=== PATIENT | female | born 1955 | race Caucasian/White ===

== ENCOUNTER → 2018-09-17 14:59 | Outpatient (CLI) | payer OTHER, MEDICAID, SELFPAY ==
--- NOTE | 2018-09-17 | DI.ECHO.S_ITS ---
[facility] +---------+ : : [address] : : : : [phone] : : : : Phone: [phone]+ Echocardiogram Report + + :Name: PURNIMA GUEVARA Study Date: 09/17/2018 Height: 66 in : :[facility] Weight: 257 lb : : Gender: Female BSA: 2.2 m2 : :: 1955 Age: 63 yrs BP: 130/84 mmHg: :Reason For Study: MR : : Performed By: Keyona Dorman : :Referring: DELMAR KRAUS : + + Interpretation Summary 1) Severely enlarged left ventricle (LVEDD 6.4cm) with mildly reduced function (EF 45-50%). 2) Normal right ventricular size and function. 3) The left atrium is moderately dilated. 4) Moderate mitral regurgitation present. 5) Pulmonary artery pressures cannot be estimated because of the lack of a measurable TR jet velocity. 6) No prior echo available for comparison. Procedure: A two-dimensional transthoracic echocardiogram with color flow and Doppler was performed. The study quality was technically adequate. There is no prior echocardiogram noted for this patient. The patient was in atrial fibrillation with heart rates between 78-104 bpm during the exam. Left Ventricle: The left ventricle is severely dilated. Left ventricular wall thickness is normal. The ejection fraction is estimated to be 45-50%. Diastolic function could not be accurately assessed due to atrial fibrillation. Right Ventricle: The right ventricle is normal in size and function. Atria: The left atrium is moderately dilated. Right atrial size is normal. There is no Doppler evidence for an interatrial shunt. Mitral Valve: The mitral valve is grossly normal. There is moderate mitral regurgitation. Aortic Valve: The aortic valve opens well. There is mild aortic valve sclerosis. There is no aortic valve stenosis. There is trace aortic regurgitation. Tricuspid Valve: The tricuspid valve is normal in structure and function. There is a trace or physiologic amount of tricuspid regurgitation. Pulmonary artery pressures cannot be estimated because of the lack of a measurable TR jet velocity. Pulmonic Valve: The pulmonic valve is not well visualized. Great Vessels: The aortic root is normal size. The ascending aorta is normal in size. The aortic arch is normal in size. The pulmonary artery is normal size. The IVC is of normal diameter and collapses greater than 50% with a sniff. This suggests a low right atrial pressure of 3 mm Hg. Pericardium/ Pleura There is no pericardial effusion. There is no pleural effusion. MMode/2D Measurements & Calculations LVIDd: 6.4 cm LVOT diam: 2.3 cm LVIDs: 5.1 cm Ao root diam: 3.5 cm FS: 20.8 % asc Aorta Diam: 3.2 cm IVSd: 0.96 cm Ao Arch Diam (distal): 2.7 cm LVPWd: 1.1 cm LV nieto. diameter/BSA (cm/m^2): 2.9 LV sys. diameter/BSA (cm/m^2): 2.3 LA A2 area: 26.6 cm2 RA long axis: 5.4 cm LA A4 area: 26.2 cm2 RA area: 18.8 cm2 LA length (vol): 5.8 cm RA vol: 56.2 ml LA vol: 102.2 ml RA : 25.3 ml/m2 LA vol index: 45.9 ml/m2 IVC diam: 1.9 cm RVD1 (basal): 3.6 cm TAPSE: 2.7 cm Doppler Measurements & Calculations Ao V2 max: 141.6 cm/sec LVOT Max Corby: 82.8 cm/sec Ao V2 mean: 110.1 cm/sec LV V1 max P.7 mmHg Ao max P.0 mmHg LV V1 VTI: 17.3 cm Ao mean P.2 mmHg NEHEMIAH(I,D): 2.7 cm2 Ao V2 VTI: 26.3 cm NEHEMIAH(V,D): 2.4 cm2 sev ratio: 0.66 NEHEMIAH indexed to BSA (cm^2/m^2): 1.2 MV E max corby: 112.3 cm/sec SV(LVOT): 70.4 ml MV dec time: 0.19 sec Reading Physician:01:[id number] PM
== END ==
PROVIDERS: PCP Family Medicine; Visit Provider Internal Medicine Cardiovascular Disease
DX: I08.0 Rheumatic disorders of both mitral and aortic valves (principal)
CPT/HCPCS: 93306

== ENCOUNTER → 2018-11-26 07:33 | Outpatient (CLI) | payer OTHER, MEDICAID, SELFPAY ==
--- NOTE | 2018-11-26 08:49 | PM.TREADMILL ---
Cardiac Stress Test Report Referral & Results Date Patient Seen: 11/26/18 Time Patient Seen: 08:30 Requesting provider: Andrew Kraus Indication: Atrial fibrillation Rest ECG: Atrial fibrillation Procedure Note: After both written and verbal informed consent the patient had an IV started by the diagnostic imaging RN and then was hooked up to the treadmill monitoring system. Overwhelming artifact prevented any useful information from being observed from the EKG. Patient experienced marked JONAS and fatigue after a minute on the treadmill. Converted to Lexiscan. The patient was placed on the treadmill at 1 mile an hour with no elevation and was then injected with the Arlet scan material. The Cardiolite was then immediately administered. The patient spent an additional one minute on the treadmill before complaining of fatigue and nausea. She was returned to the [facility] in the supine position where she recovered quickly. The patient had a normal response to all infused materials. Impression: Suboptimal Arlet protocol. Will await perfusion imaging. Please note: Actual ECG tracings can be found in the PACS system.
--- NOTE | 2018-11-30 05:03 | DI.NM.S_ITS ---
DATE OF SERVICE: 11/26/2018 PROCEDURE: Pharmacologic perfusion study. INDICATIONS: Persisted atrial fibrillation, chronic heart failure. RADIOPHARMACEUTICAL: 24.4 mCi of technetium-99m Myoview IV was injected at stress and 26.1 mCi of technetium-99m Myoview IV was injected at rest. CARDIAC STRESS: Initially, the patient attempted exercise stress test, however, could not walk more than 2 minutes and 40 seconds on treadmill. The patient had marked dyspnea and fatigue; hence, it was discontinued. The patient was given IV Lexiscan, as per protocol. She felt nausea and shortness of breath. Baseline EKG revealed atrial fibrillation with controlled ventricular rate. During stress Lexiscan, there were no new convincing ischemic changes. There were baseline ST-T changes. No significant new arrhythmias seen other than atrial fibrillation. RAW DATA: There was increased subdiaphragmatic activity. Breast shadow was seen, as well. The patient's weight is about 250 pounds. GATED STUDY: Resting LV ejection fraction 42% and stress LV ejection fraction was 54% with resting global hypokinesis. Resting end-diastolic volume 186 mL, suggestive of dilated left ventricle. TID ratio 0.92, which is within normal limits. Lung/heart ratio 0.27, which is within normal limits. MYOCARDIAL PERFUSION: Stress supine and resting supine images were compared to each other. During prone images, significant motion artifact seen; hence, it was not used. During stress supine and resting supine, there is a predominantly fixed small-sized mildly decreased perfusion of mid-anterior wall and apex, predominantly mid-portion. No obvious convincing reversible ischemia. CONCLUSION: This is an abnormal myocardial perfusion study with small-sized predominantly fixed perfusion defect of mid-anterior wall and mid-apical wall without any obvious reversible ischemia. The patient has a dilated left ventricle and resting LV ejection fraction of 42%, however, stress LV ejection fraction is 54%. No transient ischemic dilatation. There is increased subdiaphragmatic activity as well as breast shadow seen. Most likely, based on perfusion study, the patient appears to be non-ischemic dilated cardiomyopathy; however, underlying coronary artery disease cannot be ruled out entirely. Prone images had significant motion artifact; hence, it was not counted. Clinical correlation is recommended. Marissa Solo - ACE/cortes/kerry doc#: [id number]/job#: [id number] dd: 11/29/2018 17:22:00 dt: 11/30/2018 04:41:00 DICTATING MD/COPIES TO: Courtney Sanchez MD COPIES MNE: FRANK
== END ==
PROVIDERS: PCP Family Medicine; Visit Provider Internal Medicine Cardiovascular Disease
DX: I48.1 Persistent atrial fibrillation (principal); I50.9 Heart failure, unspecified; R94.39 Abnormal result of other cardiovascular function study
CPT/HCPCS: 78452; 93016; 93017; 93018; A9502; J2785

== ENCOUNTER → 2019-07-05 10:44 | Outpatient (CLI) | payer OTHER, MEDICAID, SELFPAY | PROVIDERS: PCP Nurse Practitioner; Visit Provider Nurse Practitioner | DX: J03.90 Acute tonsillitis, unspecified (principal); R05 Cough | CPT/HCPCS: 87070 ==

== ENCOUNTER → 2019-07-28 15:41 | Outpatient (CLI) | payer OTHER, MEDICAID, SELFPAY ==
--- NOTE | 2019-07-28 15:42 | DI.CT.S_ITS ---
PROCEDURE: CT KIDNEY URETER BLADDER (KUB) INDICATIONS: left flank pain, evaluate kidney stones TECHNIQUE: Noncontrast 5 mm thick sections acquired from the diaphragms to the symphysis. 5 mm thick coronal and sagittal reformats were then performed. For radiation dose reduction, the following was used: automated exposure control, adjustment of mA and/or kV according to patient size. COMPARISON: [facility], CT, CT KUB, 07/26/2018, 19:47. FINDINGS: Image quality: Excellent. Lung bases: Lung bases are clear. Tiny pulmonary nodule right lower lobe, (3/8). Heart size is normal. Urinary system: Both kidneys are normal in size. No kidney stones. No hydronephrosis or perinephric fat stranding. Both ureters appear non-dilated throughout their expected courses. Bladder is decompressed; no calcified bladder stones. Other solid organs: Liver is normal in size. Gallbladder is nondistended. There are multiple calcified gallstones. Pancreas is normal in contours. Spleen is normal in size. Left adrenal nodule measuring 1.3 cm, and 21 Hounsfield units on this noncontrast examination (07/10), previously 1.2 cm on 07/26/2018. Peritoneum and bowel: Unenhanced bowel loops demonstrate normal wall thickness and caliber. Diverticulosis. Retrocecal appendix is normal in caliber. No free fluid or air. Nodes and vessels: No retroperitoneal or mesenteric adenopathy by size criteria. Aorta and inferior vena cava are normal in caliber. Abdominal wall: No ventral hernias. Pelvis: No free pelvic fluid. No inguinal hernias or adenopathy. Fibroid uterus. Bones: No suspicious bony lesions. No vertebral body compression fractures. IMPRESSION: 1. No kidney stones. No hydronephrosis. 2. No bowel obstruction. No acute inflammatory process demonstrated. No free fluid. 3. Stable indeterminate left adrenal nodule since July 2018. 4. Cholelithiasis. Dictated by: Zhao Alvarado M.D. on 07/28/2019 at 16:38 Approved by: Zhao Alvarado M.D. on 07/28/2019 at 16:47
== END ==
PROVIDERS: PCP Nurse Practitioner; Referring Provider Nurse Practitioner; Visit Provider Nurse Practitioner
DX: R10.9 Unspecified abdominal pain (principal); K80.20 Calculus of gallbladder without cholecystitis without obstruction; E27.9 Disorder of adrenal gland, unspecified; Z87.442 Personal history of urinary calculi
CPT/HCPCS: 74176

== ENCOUNTER → 2019-10-24 15:55 | Outpatient (CLI) | payer OTHER, MEDICAID, SELFPAY ==
--- NOTE | 2019-10-24 15:59 | DI.CT.S_ITS ---
PROCEDURE: CT HEAD/BRAIN WO CON INDICATIONS: head injury/hematoma s/p fall on blood thinner TECHNIQUE: Noncontrast 4.5 mm thick angled axial sections acquired from the foramen magnum to the vertex, with coronal and sagittal reformats. For radiation dose reduction, the following was used: automated exposure control, adjustment of mA and/or kV according to patient size. COMPARISON: None. FINDINGS: Image quality: Excellent. CSF spaces: Basal cisterns are patent. No extra-axial fluid collections. The ventricles are symmetric in size and shape. Brain: No intracranial bleeds or masses. There is mild cerebral volume loss for age, with resultant ventricular and sulcal prominence. There are mild periventricular and deep white matter chronic small vessel ischemic changes. There is intracranial internal carotid artery atherosclerosis. Skull and face: Calvarium and visualized facial bones appear intact, without suspicious lesions. Large left parietal scalp hematoma. Sinuses: Visualized sinuses and mastoids are clear. IMPRESSION: 1. No acute intracranial disease process. 2. No intracranial hemorrhage. 3. No fracture. Dictated by: Katty Lo MD, PhD on 10/24/2019 at 16:16 Approved by: Katty Lo MD, PhD on 10/24/2019 at 16:21
== END ==
PROVIDERS: PCP Nurse Practitioner; Referring Provider Nurse Practitioner; Visit Provider Nurse Practitioner
DX: S09.90XA Unspecified injury of head, initial encounter (principal); S00.93XA Contusion of unspecified part of head, initial encounter; E11.9 Type 2 diabetes mellitus without complications; E03.9 Hypothyroidism, unspecified; E66.01 Morbid (severe) obesity due to excess calories; I48.91 Unspecified atrial fibrillation; I27.20 Pulmonary hypertension, unspecified; I50.9 Heart failure, unspecified; I51.7 Cardiomegaly; G47.33 Obstructive sleep apnea (adult) (pediatric); Z68.41 Body mass index [BMI] 40.0-44.9, adult; Z91.81 History of falling; Z99.89 Dependence on other enabling machines and devices; Z79.01 Long term (current) use of anticoagulants; W19.XXXA Unspecified fall, initial encounter
CPT/HCPCS: 70450

== ENCOUNTER → 2020-03-27 15:44 | Outpatient (CLI) | payer OTHER, MEDICAID, SELFPAY ==
--- NOTE | 2020-03-27 15:47 | DI.RAD.S_ITS ---
PROCEDURE: XR CHEST 2V INDICATIONS: st depression and afib TECHNIQUE: 2 views of the chest were acquired. COMPARISON: None. FINDINGS: Surgical changes and devices: None. Lungs and pleura: Lungs are clear. No pleural effusions or pneumothorax. Mediastinum: Mediastinal contours are normal. Heart size is normal. Bones and chest wall: No suspicious bony abnormalities. Soft tissues appear unremarkable. IMPRESSION: Normal for age, source of current cardiac arrhythmia symptoms is not seen. Dictated by: Santiago Teresa M.D. on 03/27/2020 at 16:25 Approved by: Santiago Teresa M.D. on 03/27/2020 at 16:26
[2020-03-27 17:56] LABS: Alanine Aminotransferase 15 IU/L (<35); Albumin Globulin Ratio 1.1 (1.0-2.8); Alkaline Phosphatase 93 U/L (38-126); Aspartate Aminotransferase 24 IU/L (14-36); BUN Creatinine Ratio 23.6 (6-22); Bilirubin Total 1.2 mg/dL (0.2-1.3); Blood Urea Nitrogen 43 mg/dL (7-17); Calcium 9.6 mg/dL (8.4-10.2); Carbon Dioxide 24 mmol/L (22-32); Chloride 105 mmol/L (98-107); Estimated Glomerular Filt Rate 28.1 mL/min (>60); Globulin 3.6 g/dL (1.7-4.1); Glucose 148 mg/dL (80-110); HEMOLYSIS < 15 (0-50); Magnesium 1.6 mg/dL (1.6-2.3); Sodium 134 mmol/L (137-145); Total Protein 7.6 g/dL (6.3-8.2)
[2020-03-27 17:57] LABS: Creatine Kinase 25 U/L (30-135)
[2020-03-27 18:02] LABS: Add Manual Diff / Slide Review NO; Basophils Absolute Auto 0 /uL (0-100); Basophils Percent Auto 0.6 % (0-2); Eosinophils Absolute Auto 500 /uL (0-450); Eosinophils Percent Auto 5.8 % (2-4); Hematocrit 31.1 % (36-46); Hemoglobin 10.3 g/dL (12.0-16.0); Lymphocytes Absolute Auto 1300 /uL (1100-4500); Lymphocytes Percent Auto 16.5 % (25-40); Mean Corpuscular HGB Conc 33.2 % (30-36); Mean Corpuscular Hemoglobin 32.7 PG (26-34); Mean Corpuscular Volume 98.5 fL (80-100); Monocytes Absolute Auto 700 /uL (0-900); Monocytes Percent Auto 8.9 % (3-14); Neutrophils Absolute Auto 5400 /uL (1500-7000); Neutrophils Percent Auto 68.2 % (50-75); Platelet Count 254 X10^3/uL (150-400); Red Blood Cell Count 3.16 X10^6/uL (4.0-5.2); Red Cell Distribution Width 16.1 % (11.6-14.8)
[2020-03-27 18:07] LABS: Troponin I < 0.012 ng/mL (0.01-0.034)
[2020-03-27 18:12] LABS: Potassium 5.5 mmol/L (3.4-5.1)
== END ==
PROVIDERS: PCP Nurse Practitioner; Referring Provider Nurse Practitioner; Visit Provider Nurse Practitioner
DX: R94.31 Abnormal electrocardiogram [ECG] [EKG] (principal); I48.91 Unspecified atrial fibrillation; I50.9 Heart failure, unspecified; N18.4 Chronic kidney disease, stage 4 (severe); R55 Syncope and collapse; T50.2X5A Adverse effect of carbonic-anhydrase inhibitors, benzothiadiazides and other diuretics, initial encounter
CPT/HCPCS: 36415; 71046; 80053; 82550; 83735; 84484; 85025

== ENCOUNTER → 2020-03-30 13:45 | Outpatient (CLI) | payer OTHER, MEDICAID, SELFPAY ==
[2020-03-30 14:07] LABS: Occult Blood 1 Negative (Negative)
== END ==
PROVIDERS: PCP Nurse Practitioner; Referring Provider Nurse Practitioner; Visit Provider Nurse Practitioner
DX: D64.9 Anemia, unspecified (principal)
CPT/HCPCS: 82270

== ENCOUNTER → 2020-04-05 11:14 | Outpatient (CLI) | payer OTHER, MEDICAID, SELFPAY ==
[2020-04-05 12:50] LABS: Reticulocyte Count, Percent 2.3 % (1.06-2.63)
[2020-04-05 12:52] LABS: Hematocrit 28.6 % (36-46); Hemoglobin 9.5 g/dL (12.0-16.0); Mean Corpuscular HGB Conc 33.4 % (30-36); Mean Corpuscular Volume 98.7 fL (80-100); Platelet Count 258 X10^3/uL (150-400); Red Blood Cell Count 2.89 X10^6/uL (4.0-5.2); Red Cell Distribution Width 15.2 % (11.6-14.8); White Blood Cell Count 10.2 X10^3/uL (4.5-11.0)
[2020-04-05 13:06] LABS: BUN Creatinine Ratio 14.8 (6-22); Blood Urea Nitrogen 18 mg/dL (7-17); Calcium 9.5 mg/dL (8.4-10.2); Carbon Dioxide 26 mmol/L (22-32); Chloride 105 mmol/L (98-107); Estimated Glomerular Filt Rate 44.5 mL/min (>60); Glucose 139 mg/dL (80-110); HEMOLYSIS < 15 (0-50); Potassium 4.7 mmol/L (3.4-5.1); Sodium 136 mmol/L (137-145)
[2020-04-05 13:16] LABS: HEMOLYSIS < 15 (0-50); Iron 66 ug/dL (37-170)
[2020-04-05 13:18] LABS: Neutrophils Absolute Manual 7854 /uL (3000-5900); Total Cells Counted 100
[2020-04-05 13:19] LABS: Anisocytosis 2+; Polychromasia 1+
[2020-04-05 13:29] LABS: Percent Iron Saturation 28 % (15-50); Total Iron Binding Capacity 239 ug/dL (265-497); Transferrin 174 mg/dL (206-381)
[2020-04-05 13:41] LABS: Ferritin 153 ng/mL (11-264)
[2020-04-05 14:11] LABS: Folate > 20.0 ng/mL (2.76-20.0); Vitamin B12 968 pg/mL (239-931)
[2020-04-06 04:05] LABS: Haptoglobin 136 mg/dL (37-355)
== END ==
PROVIDERS: PCP Nurse Practitioner; Referring Provider Nurse Practitioner; Visit Provider Nurse Practitioner
DX: D64.9 Anemia, unspecified (principal); I50.9 Heart failure, unspecified; N18.4 Chronic kidney disease, stage 4 (severe); R55 Syncope and collapse; R94.31 Abnormal electrocardiogram [ECG] [EKG]; T50.2X5A Adverse effect of carbonic-anhydrase inhibitors, benzothiadiazides and other diuretics, initial encounter
CPT/HCPCS: 36415; 80048; 82607; 82728; 82746; 83010; 83540; 83550; 85025; 85045; 86880

== ENCOUNTER → 2020-04-16 11:22 | Outpatient (CLI) | payer OTHER, MEDICAID, SELFPAY ==
[2020-04-16 13:05] LABS: BUN Creatinine Ratio 13.6 (6-22); Blood Urea Nitrogen 15 mg/dL (7-17); Calcium 9.2 mg/dL (8.4-10.2); Carbon Dioxide 28 mmol/L (22-32); Chloride 105 mmol/L (98-107); Estimated Glomerular Filt Rate 50.2 mL/min (>60); Glucose 124 mg/dL (80-110); HEMOLYSIS < 15 (0-50); Magnesium 1.6 mg/dL (1.6-2.3); Potassium 4.8 mmol/L (3.4-5.1); Sodium 136 mmol/L (137-145)
== END ==
PROVIDERS: PCP Nurse Practitioner; Referring Provider Nurse Practitioner; Visit Provider Nurse Practitioner
DX: I50.9 Heart failure, unspecified (principal); N19 Unspecified kidney failure; Z79.899 Other long term (current) drug therapy
CPT/HCPCS: 36415; 80048; 83735

== ENCOUNTER → 2020-10-22 10:08 | Outpatient (CLI) | payer OTHER, MEDICAID, SELFPAY ==
[2020-10-22 11:17] LABS: Hemoglobin A1C% w Est Avg Glu 6.9 % (4.0-6.0)
[2020-10-22 11:25] LABS: Alanine Aminotransferase 21 IU/L (<35); Albumin 4.2 g/dL (3.5-5.0); Albumin Globulin Ratio 1.2 (1.0-2.8); Alkaline Phosphatase 104 U/L (38-126); Aspartate Aminotransferase 28 IU/L (14-36); Bilirubin Total 1.5 mg/dL (0.2-1.3); Blood Urea Nitrogen 32 mg/dL (7-17); Calcium 9.6 mg/dL (8.4-10.2); Carbon Dioxide 28 mmol/L (22-32); Chloride 98 mmol/L (98-107); Cholesterol 138 mg/dL (140-199); Estimated Glomerular Filt Rate 38.3 mL/min (>60); Globulin 3.5 g/dL (1.7-4.1); Glucose 182 mg/dL (80-110); HDL Cholesterol 41 mg/dL (40-60); HEMOLYSIS < 15 (0-50); LDL Cholesterol Calculated 66 mg/dL (<100); Magnesium 1.8 mg/dL (1.6-2.3); Potassium 4.2 mmol/L (3.4-5.1); Sodium 133 mmol/L (137-145); Total Protein 7.7 g/dL (6.3-8.2); Triglycerides 154 mg/dL (35-150)
[2020-10-22 11:51] LABS: TSH w/ Reflex to FT4 2.53 uIU/mL (0.47-4.68)
[2020-10-22 12:33] LABS: Creatinine Urine Random 173.3 mg/dL
[2020-10-22 12:38] LABS: Microalbumin Urine Random < 0.6 mg/dL (0-1.6)
[2020-10-23 15:22] LABS: C-Reactive Protein Quant < 0.5 mg/dL (<1.0)
[2020-10-24 15:01] LABS: Add Manual Diff / Slide Review NO; Basophils Absolute Auto 100 /uL (0-100); Eosinophils Absolute Auto 200 /uL (0-450); Eosinophils Percent Auto 2.1 % (2-4); Hematocrit 39.9 % (36-46); Hemoglobin 13.3 g/dL (12.0-16.0); Lymphocytes Absolute Auto 1400 /uL (1100-4500); Lymphocytes Percent Auto 15.1 % (25-40); Mean Corpuscular HGB Conc 33.3 % (30-36); Mean Corpuscular Hemoglobin 32.5 PG (26-34); Mean Corpuscular Volume 97.5 fL (80-100); Monocytes Absolute Auto 600 /uL (0-900); Monocytes Percent Auto 6.7 % (3-14); Neutrophils Absolute Auto 7200 /uL (1500-7000); Neutrophils Percent Auto 75.1 % (50-75); Platelet Count 206 X10^3/uL (150-400); Red Blood Cell Count 4.09 X10^6/uL (4.0-5.2); White Blood Cell Count 9.5 X10^3/uL (4.5-11.0)
== END ==
PROVIDERS: PCP Nurse Practitioner; Referring Provider Nurse Practitioner; Visit Provider Nurse Practitioner
DX: E03.9 Hypothyroidism, unspecified (principal); E11.9 Type 2 diabetes mellitus without complications; E78.2 Mixed hyperlipidemia; I48.20 Chronic atrial fibrillation, unspecified; I50.32 Chronic diastolic (congestive) heart failure; M05.79 Rheumatoid arthritis with rheumatoid factor of multiple sites without organ or systems involvement; Z79.01 Long term (current) use of anticoagulants; Z79.899 Other long term (current) drug therapy
CPT/HCPCS: 36415; 80053; 80061; 82043; 82570; 83036; 83735; 84443; 85025; 86140

== ENCOUNTER → 2021-02-12 12:59 | Outpatient (CLI) | payer OTHER, MEDICAID, SELFPAY ==
[2021-02-12 13:57] LABS: Hematocrit 37.6 % (36-46); Hemoglobin 12.7 g/dL (12.0-16.0); Mean Corpuscular HGB Conc 33.6 % (30-36); Mean Corpuscular Hemoglobin 32.8 PG (26-34); Mean Corpuscular Volume 97.4 fL (80-100); Platelet Count 222 X10^3/uL (150-400); Red Blood Cell Count 3.86 X10^6/uL (4.0-5.2); Red Cell Distribution Width 13.8 % (11.6-14.8)
[2021-02-12 14:17] LABS: HEMOLYSIS 16 (0-50); Iron 220 ug/dL (37-170)
[2021-02-12 14:23] LABS: Creatinine Urine Random 35.5 mg/dL
[2021-02-12 14:28] LABS: Microalbumin Urine Random < 0.6 mg/dL (0-1.6); Total Iron Binding Capacity 221 ug/dL (265-497); Transferrin 188 mg/dL (206-381)
[2021-02-12 14:31] LABS: Percent Iron Saturation 100 % (15-50)
[2021-02-12 14:32] LABS: Alanine Aminotransferase 19 IU/L (<35); Albumin 4.2 g/dL (3.5-5.0); Albumin Globulin Ratio 1.4 (1.0-2.8); Alkaline Phosphatase 95 U/L (38-126); Aspartate Aminotransferase 24 IU/L (14-36); BUN Creatinine Ratio 20.3 (6-22); Bilirubin Total 1.2 mg/dL (0.2-1.3); Blood Urea Nitrogen 28 mg/dL (7-17); Carbon Dioxide 29 mmol/L (22-32); Chloride 100 mmol/L (98-107); Cholesterol 155 mg/dL (140-199); Estimated Glomerular Filt Rate 38.5 mL/min (>60); Globulin 3.1 g/dL (1.7-4.1); Glucose 196 mg/dL (80-110); HDL Cholesterol 55 mg/dL (40-60); HEMOLYSIS 22 (0-50); LDL Cholesterol Calculated 63 mg/dL (<100); Magnesium 1.6 mg/dL (1.6-2.3); Sodium 135 mmol/L (137-145); Total Protein 7.3 g/dL (6.3-8.2); Triglycerides 183 mg/dL (35-150)
[2021-02-12 14:34] LABS: Potassium 5.4 mmol/L (3.4-5.1)
[2021-02-12 14:47] LABS: Thyroid Stimulating Hormone 1.04 uIU/mL (0.47-4.68)
== END ==
PROVIDERS: PCP Nurse Practitioner; Referring Provider Nurse Practitioner; Visit Provider Nurse Practitioner
DX: D84.821 Immunodeficiency due to drugs (principal); E03.9 Hypothyroidism, unspecified; E11.9 Type 2 diabetes mellitus without complications; E78.2 Mixed hyperlipidemia; I48.20 Chronic atrial fibrillation, unspecified; Z79.01 Long term (current) use of anticoagulants; T50.2X5A Adverse effect of carbonic-anhydrase inhibitors, benzothiadiazides and other diuretics, initial encounter; D64.9 Anemia, unspecified; R42 Dizziness and giddiness; R53.1 Weakness
CPT/HCPCS: 36415; 80053; 80061; 82043; 82570; 83036; 83540; 83550; 83735; 84443; 85027

== ENCOUNTER → 2021-06-11 12:45 | Outpatient (CLI) | payer OTHER, MEDICAID, SELFPAY ==
[2021-06-11 13:19] LABS: Add Manual Diff / Slide Review NO; Basophils Absolute Auto 0 /uL (0-100); Basophils Percent Auto 0.5 % (0-2); Eosinophils Absolute Auto 300 /uL (0-450); Eosinophils Percent Auto 2.9 % (2-4); Hemoglobin 12.2 g/dL (12.0-16.0); Lymphocytes Absolute Auto 2500 /uL (1100-4500); Lymphocytes Percent Auto 29.5 % (25-40); Mean Corpuscular Hemoglobin 31.4 PG (26-34); Mean Corpuscular Volume 95.2 fL (80-100); Monocytes Absolute Auto 700 /uL (0-900); Monocytes Percent Auto 8.7 % (3-14); Neutrophils Absolute Auto 5000 /uL (1500-7000); Neutrophils Percent Auto 58.4 % (50-75); Platelet Count 220 X10^3/uL (150-400); Red Blood Cell Count 3.89 X10^6/uL (4.0-5.2); Red Cell Distribution Width 12.9 % (11.6-14.8); White Blood Cell Count 8.6 X10^3/uL (4.5-11.0)
[2021-06-11 13:23] LABS: Hemoglobin A1C% w Est Avg Glu 10.1 % (4.0-6.0)
[2021-06-11 13:42] LABS: Alanine Aminotransferase 18 IU/L (<35); Albumin 4.3 g/dL (3.5-5.0); Albumin Globulin Ratio 1.2 (1.0-2.8); Alkaline Phosphatase 87 U/L (38-126); Aspartate Aminotransferase 39 IU/L (14-36); BUN Creatinine Ratio 20.9 (6-22); Blood Urea Nitrogen 39 mg/dL (7-17); Calcium 9.9 mg/dL (8.4-10.2); Carbon Dioxide 28 mmol/L (22-32); Chloride 100 mmol/L (98-107); Cholesterol 167 mg/dL (140-199); Estimated Glomerular Filt Rate 27.1 mL/min (>60); Globulin 3.6 g/dL (1.7-4.1); Glucose 269 mg/dL (80-110); HDL Cholesterol 44 mg/dL (40-60); HEMOLYSIS 20 (0-50); LDL Cholesterol Calculated 81 mg/dL (<100); Magnesium 1.9 mg/dL (1.6-2.3); Potassium 4.9 mmol/L (3.4-5.1); Sodium 136 mmol/L (137-145); Total Protein 7.9 g/dL (6.3-8.2); Triglycerides 210 mg/dL (35-150)
[2021-06-11 14:10] LABS: Thyroid Stimulating Hormone 1.04 uIU/mL (0.47-4.68)
[2021-06-11 15:51] LABS: Creatinine Urine Random 29.7 mg/dL
[2021-06-11 16:02] LABS: Microalbumin Urine Random < 0.6 mg/dL (0-1.6)
== END ==
PROVIDERS: PCP Nurse Practitioner; Referring Provider Nurse Practitioner; Visit Provider Nurse Practitioner
DX: E87.5 Hyperkalemia (principal); E78.2 Mixed hyperlipidemia; I48.20 Chronic atrial fibrillation, unspecified; E03.9 Hypothyroidism, unspecified; E11.9 Type 2 diabetes mellitus without complications
CPT/HCPCS: 36415; 80053; 80061; 82043; 82570; 83036; 83735; 84443; 85025

== ENCOUNTER → 2021-08-02 11:01 | Outpatient (CLI) | payer OTHER, MEDICAID, SELFPAY ==
[2021-08-02 11:44] LABS: Appearance Urine UA CLEAR; Bilirubin Urine UA NEGATIVE (NEGATIVE); Color Urine UA YELLOW; Glucose Urine UA 1+ g/dL (Negative); Ketones Urine UA NEGATIVE (NEGATIVE); Leukocyte Esterase Urine UA 1+ (NEGATIVE); Nitrite Urine UA NEGATIVE (Negative); Occult Blood Urine UA NEGATIVE (Negative); Protein Urine UA NEGATIVE (Negative); Urobilinogen Urine UA 0.2 E.U./dL (0.2)
[2021-08-02 11:48] LABS: pH Urine UA 5.5 (4.5-8.0)
[2021-08-02 11:54] LABS: Bacteria Urine None Seen; Culture Indicated Urine Specimen Cultured; RBC Urine None Seen (0-5/HPF); Squamous Epithelial Cell Urine 5-10 /HPF (0-5/HPF); WBC Urine 5-10/HPF (0-5/HPF)
[2021-08-02 12:21] LABS: Add Manual Diff / Slide Review NO; Basophils Absolute Auto 100 /uL (0-100); Basophils Percent Auto 0.9 % (0-2); Eosinophils Absolute Auto 200 /uL (0-450); Eosinophils Percent Auto 2.1 % (2-4); Hematocrit 37.7 % (36-46); Hemoglobin 12.5 g/dL (12.0-16.0); Lymphocytes Absolute Auto 900 /uL (1100-4500); Lymphocytes Percent Auto 10.4 % (25-40); Mean Corpuscular HGB Conc 33.2 % (30-36); Mean Corpuscular Hemoglobin 32.4 PG (26-34); Mean Corpuscular Volume 97.8 fL (80-100); Monocytes Absolute Auto 800 /uL (0-900); Monocytes Percent Auto 9.5 % (3-14); Neutrophils Absolute Auto 6800 /uL (1500-7000); Neutrophils Percent Auto 77.1 % (50-75); Platelet Count 197 X10^3/uL (150-400); Red Blood Cell Count 3.86 X10^6/uL (4.0-5.2); Red Cell Distribution Width 15.4 % (11.6-14.8); White Blood Cell Count 8.8 X10^3/uL (4.5-11.0)
[2021-08-02 12:28] LABS: Hemoglobin A1C% w Est Avg Glu 10.3 % (4.0-6.0)
[2021-08-02 12:49] LABS: Alanine Aminotransferase 14 IU/L (<35); Albumin 3.8 g/dL (3.5-5.0); Albumin Globulin Ratio 1.2 (1.0-2.8); Alkaline Phosphatase 87 U/L (38-126); Aspartate Aminotransferase 18 IU/L (14-36); BUN Creatinine Ratio 17.6 (6-22); Blood Urea Nitrogen 27 mg/dL (7-17); Calcium 9.5 mg/dL (8.4-10.2); Carbon Dioxide 30 mmol/L (22-32); Chloride 100 mmol/L (98-107); Estimated Glomerular Filt Rate 34.2 mL/min (>60); Globulin 3.1 g/dL (1.7-4.1); Glucose 217 mg/dL (80-110); HEMOLYSIS < 15 (0-50); Sodium 135 mmol/L (137-145); Total Protein 6.9 g/dL (6.3-8.2)
[2021-08-02 12:49] LABS: Magnesium 1.9 mg/dL (1.6-2.3)
== END ==
PROVIDERS: PCP Nurse Practitioner; Referring Provider Physician Assistant; Visit Provider Physician Assistant
DX: Z01.810 Encounter for preprocedural cardiovascular examination (principal); N28.9 Disorder of kidney and ureter, unspecified; Z01.812 Encounter for preprocedural laboratory examination; E87.5 Hyperkalemia; T50.2X5A Adverse effect of carbonic-anhydrase inhibitors, benzothiadiazides and other diuretics, initial encounter
CPT/HCPCS: 36415; 80053; 81003; 81015; 83036; 83735; 85025; 87086; 93005; 93010

== ENCOUNTER → 2021-08-28 10:39 | Outpatient (CLI) | payer OTHER, MEDICAID, SELFPAY ==
[2021-08-28 12:16] LABS: BUN Creatinine Ratio 17.8 (6-22); Blood Urea Nitrogen 29 mg/dL (7-17); Calcium 9.1 mg/dL (8.4-10.2); Carbon Dioxide 32 mmol/L (22-32); Chloride 97 mmol/L (98-107); Estimated Glomerular Filt Rate 35 mL/min (>60); Glucose 205 mg/dL (80-110); HEMOLYSIS < 15 (0-50); Potassium 4.4 mmol/L (3.4-5.1); Sodium 136 mmol/L (137-145)
== END ==
PROVIDERS: PCP Nurse Practitioner; Referring Provider Nurse Practitioner; Visit Provider Nurse Practitioner
DX: Z01.812 Encounter for preprocedural laboratory examination (principal)
CPT/HCPCS: 36415; 80048

== ENCOUNTER → 2021-11-20 11:39 | Outpatient (CLI) | payer OTHER, MEDICAID, SELFPAY ==
[2021-11-20 12:48] LABS: Hemoglobin A1C% w Est Avg Glu 7.8 % (4.0-6.0)
[2021-11-20 12:53] LABS: Alanine Aminotransferase 19 IU/L (<35); Albumin Globulin Ratio 1.1 (1.0-2.8); Alkaline Phosphatase 85 U/L (38-126); Aspartate Aminotransferase 23 IU/L (14-36); BUN Creatinine Ratio 16.7 (6-22); Bilirubin Total 1.3 mg/dL (0.2-1.3); Blood Urea Nitrogen 26 mg/dL (7-17); Calcium 9.2 mg/dL (8.4-10.2); Carbon Dioxide 28 mmol/L (22-32); Chloride 100 mmol/L (98-107); Cholesterol 156 mg/dL (140-199); Estimated Glomerular Filt Rate 37 mL/min (>60); Globulin 3.7 g/dL (1.7-4.1); Glucose 182 mg/dL (80-110); HDL Cholesterol 41 mg/dL (40-60); HEMOLYSIS < 15 (0-50); LDL Cholesterol Calculated 81 mg/dL (<100); Potassium 5.1 mmol/L (3.4-5.1); Sodium 136 mmol/L (137-145); Total Protein 7.7 g/dL (6.3-8.2); Triglycerides 170 mg/dL (35-150)
[2021-11-20 13:23] LABS: Thyroid Stimulating Hormone 4.94 uIU/mL (0.47-4.68)
[2021-11-20 15:53] LABS: Microalbumi Creatinin Ratio Ur 8.6 ug/mg CR (<30); Microalbumin Urine Random 1.2 mg/dL (0-1.6)
== END ==
PROVIDERS: PCP Nurse Practitioner; Referring Provider Nurse Practitioner; Visit Provider Nurse Practitioner
DX: E03.9 Hypothyroidism, unspecified (principal); E78.2 Mixed hyperlipidemia; N18.4 Chronic kidney disease, stage 4 (severe); R73.01 Impaired fasting glucose; Z79.899 Other long term (current) drug therapy
CPT/HCPCS: 36415; 80053; 80061; 82043; 82570; 83036; 84443

== ENCOUNTER → 2021-12-26 14:54 | Outpatient (CLI) | payer OTHER, MEDICAID, SELFPAY ==
--- NOTE | 2021-12-26 14:56 | DI.ECHO.S_ITS ---
[facility] +---------+ : : [address] : [address] : [address] : : : : [phone] : : : : Phone: [phone]---------+ Echocardiogram Report + + :Name: PURNIMA GUEVARA Study Date: 12/26/2021 Height: 66 in : :[facility] ReadingLocation: Weight: 275 lb : : Gender: Female BSA: 2.3 m2 : :: 1955 Age: 66 yrs BP: 105/81 mmHg: :Reason For Study: Pre-surgical evaluation : :Ordering Physician: CATINA, : :ASUNCION Performed By: Bill Gutierrez : :Referring: ASUNCION DOMINIQUE : + + Interpretation Summary 1) Moderately enlarged left ventricle (LVEDD 5.9cm) with mildly reduced function (EF 45-50%). 2) Normal right ventricular size and function. 3) The left atrium is moderately dilated. 4) Mild mitral regurgitation present. 5) Atrial fibrillation with good rate control present during the study. 6) Compared to the Echo done 10/29/2020, LVEF has improved from 40-45% to 45- 50% on this study. Procedure: A two-dimensional transthoracic echocardiogram with color flow and Doppler was performed. The study quality was technically difficult. Left Ventricle: The left ventricle is moderately dilated. There is mild concentric left ventricular hypertrophy. Left ventricular systolic function is mildly reduced. The ejection fraction is estimated to be 45-50%. There is mild global hypokinesis of the left ventricle. Diastolic function could not be accurately assessed due to atrial fibrillation. Right Ventricle: The right ventricle is normal in size and function. Atria: The left atrium is moderately dilated. Right atrial size is normal. The interatrial septum grossly appears intact with no obvious evidence for an atrial septal defect. Mitral Valve: The mitral valve is normal in structure and function. There is mild mitral regurgitation. Aortic Valve: There is mild aortic valve sclerosis. The aortic valve opens well. There is no aortic valve stenosis. There is mild aortic regurgitation. Tricuspid Valve: The tricuspid valve is normal in structure and function. There is trace tricuspid regurgitation. The right ventricular systolic pressure is estimated to be at least 25 mmHg based on an estimated right atrial pressure of 3 mm Hg. Pulmonic Valve: The pulmonic valve is normal in structure and function. There is trace pulmonic regurgitation. Great Vessels: The aortic root is normal size. The dimensions of the ascending aorta are normal. The IVC is of normal diameter and collapses greater than 50% with a sniff. This suggests a low right atrial pressure of 3 mm Hg. Pericardium/ Pleura There is no pericardial effusion. There is no pleural effusion. MMode/2D Measurements & Calculations LVIDd: 5.9 cm LVOT diam: 2.0 cm LVIDs: 4.5 cm Ao root diam: 3.3 cm FS: 23.8 % asc Aorta Diam: 2.8 cm IVSd: 1.2 cm LVPWd: 1.2 cm LV nieto. diameter/BSA (cm/m^2): 2.6 LV sys. diameter/BSA (cm/m^2): 1.9 LA A2 area: 20.6 cm2 RA long axis: 5.6 cm LA A4 area: 28.2 cm2 RA area: 18.0 cm2 LA length (vol): 6.2 cm RA vol: 49.5 ml LA vol: 79.6 ml RA : 21.6 ml/m2 LA vol index: 34.8 ml/m2 TAPSE: 2.0 cm Doppler Measurements & Calculations Ao V2 max: 177.0 cm/sec LVOT Max Corby: 100.5 cm/sec Ao V2 mean: 121.2 cm/sec LV V1 max P.0 mmHg Ao max P.5 mmHg LV V1 VTI: 19.2 cm Ao mean P.6 mmHg NEHEMIAH(I,D): 2.0 cm2 Ao V2 VTI: 31.8 cm NEHEMIAH(V,D): 1.8 cm2 sev ratio: 0.60 NEHEMIAH indexed to BSA (cm^2/m^2): 0.86 TR max corby: 233.3 cm/sec SV(LVOT): 62.5 ml TR max P.8 mmHg Reading Physician:04:52 PM
== END ==
PROVIDERS: PCP Nurse Practitioner; Referring Provider Internal Medicine Cardiovascular Disease; Visit Provider Internal Medicine Cardiovascular Disease
DX: Z01.810 Encounter for preprocedural cardiovascular examination (principal); I42.8 Other cardiomyopathies; I08.0 Rheumatic disorders of both mitral and aortic valves
CPT/HCPCS: 93306

== ENCOUNTER → 2022-01-13 14:37 | Outpatient (CLI) | payer OTHER, MEDICAID, SELFPAY ==
[2022-01-13 15:59] LABS: Add Manual Diff / Slide Review NO; Basophils Absolute Auto 0 /uL (0-100); Basophils Percent Auto 0.3 % (0-2); Eosinophils Absolute Auto 200 /uL (0-450); Eosinophils Percent Auto 2.9 % (2-4); Hematocrit 38.5 % (36-46); Hemoglobin 13.1 g/dL (12.0-16.0); Lymphocytes Absolute Auto 800 /uL (1100-4500); Lymphocytes Percent Auto 10.2 % (25-40); Mean Corpuscular Hemoglobin 33.9 PG (26-34); Mean Corpuscular Volume 99.7 fL (80-100); Monocytes Absolute Auto 700 /uL (0-900); Monocytes Percent Auto 8.1 % (3-14); Neutrophils Absolute Auto 6500 /uL (1500-7000); Neutrophils Percent Auto 78.5 % (50-75); Platelet Count 186 X10^3/uL (150-400); Red Blood Cell Count 3.87 X10^6/uL (4.0-5.2); Red Cell Distribution Width 14.4 % (11.6-14.8); White Blood Cell Count 8.3 X10^3/uL (4.5-11.0)
[2022-01-13 16:18] LABS: Alanine Aminotransferase 20 IU/L (<35); Albumin 3.7 g/dL (3.5-5.0); Albumin Globulin Ratio 1.1 (1.0-2.8); Alkaline Phosphatase 77 U/L (38-126); Aspartate Aminotransferase 23 IU/L (14-36); Blood Urea Nitrogen 26 mg/dL (7-17); C-Reactive Protein Quant 1.3 mg/dL (<1.0); Calcium 9.2 mg/dL (8.4-10.2); Carbon Dioxide 30 mmol/L (22-32); Chloride 100 mmol/L (98-107); Estimated Glomerular Filt Rate 35 mL/min (>60); Globulin 3.5 g/dL (1.7-4.1); Glucose 297 mg/dL (80-110); HEMOLYSIS < 15 (0-50); Sodium 135 mmol/L (137-145); Total Protein 7.2 g/dL (6.3-8.2)
[2022-01-13 16:23] LABS: Potassium 5.4 mmol/L (3.4-5.1)
[2022-01-13 16:41] LABS: Erythrocyte Sedimentation Rate 47 MM/HR (0-20)
== END ==
PROVIDERS: PCP Nurse Practitioner; Referring Provider Physician Assistant; Visit Provider Physician Assistant
DX: M05.79 Rheumatoid arthritis with rheumatoid factor of multiple sites without organ or systems involvement (principal); Z79.899 Other long term (current) drug therapy
CPT/HCPCS: 36415; 80053; 85025; 85651; 86140

== ENCOUNTER → 2022-02-27 11:08 | Outpatient (CLI) | payer MEDICARE, OTHER, MEDICAID, SELFPAY ==
[2022-02-27 12:41] LABS: Alanine Aminotransferase 17 IU/L (<35); Albumin Globulin Ratio 1.1 (1.0-2.8); Alkaline Phosphatase 85 U/L (38-126); Aspartate Aminotransferase 20 IU/L (14-36); BUN Creatinine Ratio 12.5 (6-22); Bilirubin Total 1.1 mg/dL (0.2-1.3); Blood Urea Nitrogen 20 mg/dL (7-17); Calcium 9.4 mg/dL (8.4-10.2); Carbon Dioxide 30 mmol/L (22-32); Chloride 100 mmol/L (98-107); Cholesterol 186 mg/dL (140-199); Estimated Glomerular Filt Rate 36 mL/min (>60); Globulin 3.7 g/dL (1.7-4.1); Glucose 153 mg/dL (80-110); HDL Cholesterol 40 mg/dL (40-60); HEMOLYSIS < 15 (0-50); LDL Cholesterol Calculated 119 mg/dL (<100); Potassium 4.8 mmol/L (3.4-5.1); Sodium 136 mmol/L (137-145); Total Protein 7.7 g/dL (6.3-8.2); Triglycerides 135 mg/dL (35-150)
[2022-02-27 12:48] LABS: Hemoglobin A1C% w Est Avg Glu 7.3 % (4.0-6.0)
[2022-02-27 13:10] LABS: Thyroid Stimulating Hormone 0.744 uIU/mL (0.47-4.68)
[2022-02-27 15:36] LABS: Microalbumin Urine Random 0.7 mg/dL (0-1.6)
[2022-02-27 15:39] LABS: Creatinine Urine Random 72.7 mg/dL; Microalbumi Creatinin Ratio Ur 9.6 ug/mg CR (<30)
== END ==
PROVIDERS: PCP Nurse Practitioner; Referring Provider Nurse Practitioner; Visit Provider Nurse Practitioner
DX: N18.4 Chronic kidney disease, stage 4 (severe) (principal); E03.9 Hypothyroidism, unspecified; I48.20 Chronic atrial fibrillation, unspecified
CPT/HCPCS: 36415; 80053; 80061; 82043; 82570; 83036; 84443

== ENCOUNTER → 2023-09-01 13:14 | Outpatient (CLI) | payer MEDICARE, SELFPAY ==
[2023-09-01 14:22] LABS: Hemoglobin A1C% w Est Avg Glu 8.3 % (4.0-6.0)
[2023-09-01 14:27] LABS: Alanine Aminotransferase 15 IU/L (<35); Albumin 4.3 g/dL (3.5-5.0); Albumin Globulin Ratio 1.2 (1.0-2.8); Alkaline Phosphatase 101 U/L (38-126); Aspartate Aminotransferase 21 IU/L (14-36); BUN Creatinine Ratio 19.9 (6-22); Bilirubin Total 1.7 mg/dL (0.2-1.3); Blood Urea Nitrogen 32 mg/dL (7-17); Calcium 9.4 mg/dL (8.4-10.2); Carbon Dioxide 30 mmol/L (22-32); Chloride 100 mmol/L (98-107); Estimated Glomerular Filt Rate 35 mL/min (>60); Globulin 3.6 g/dL (1.7-4.1); Glucose 327 mg/dL (80-110); HEMOLYSIS < 15 (0-50); Sodium 134 mmol/L (137-145); Total Protein 7.9 g/dL (6.3-8.2)
[2023-09-01 14:39] LABS: Potassium 5.4 mmol/L (3.4-5.1)
== END ==
PROVIDERS: PCP Nurse Practitioner; Referring Provider Nurse Practitioner; Visit Provider Nurse Practitioner
DX: E11.9 Type 2 diabetes mellitus without complications (principal)
CPT/HCPCS: 36415; 80053; 83036